=== PATIENT | male | born 1960 | race Caucasian/White ===

== ENCOUNTER → 2017-05-07 | Outpatient (CLI) | payer OTHER | END | disposition home or self-care (01) | LOC: RAD 11:03 | PROVIDERS: ATTEND Nurse Practitioner Family | DX: M19.012 Primary osteoarthritis, left shoulder (principal); M25.712 Osteophyte, left shoulder; M50.323 Other cervical disc degeneration at C6-C7 level; M48.02 Spinal stenosis, cervical region | CPT/HCPCS: 72050 ==